=== PATIENT | female | born 1975 | race Caucasian/White ===

== ENCOUNTER 2020-11-20 07:13 | Outpatient (CLI) | payer OTHER, SELFPAY ==
[2020-11-20 10:33] LABS: HCT 42.4 % (36.0-46.0); HGB 13.8 g/dL (11.2-15.7); MCH 30.5 pg (27.0-33.0); MCHC 32.5 % (32.0-36.0); MCV 93.6 fL (80-95); MPV 9.5 fL (8.0-11.0); Platelet Count 278 10^3/uL (130-400); RBC 4.53 10^6/uL (3.93-5.22); RDW 12.1 % (11.7-14.6); RDW-SD 42.3 fL; WBC 6.83 10^3/uL (4.4-10.8)
[2020-11-20 11:02] LABS: ALT 18 U/L (14-59); AST 17 U/L (15-37); Albumin 3.5 g/dL (3.4-5.0); Alkaline Phosphatase 89 U/L (46-116); Anion Gap 7.8 mmol/L (3-11); BUN 12 mg/dL (7-18); Bilirubin, Total 0.6 mg/dL (0.2-1.0); CO2 27.2 mmol/L (21.0-32.0); CREATININE 0.8 mg/dL (0.55-1.02); Calcium 8.1 mg/dL (8.5-10.1); Calculated LDL 81 mg/dL (<100); Chloride 106 mmol/L (98-107); Cholesterol 137 mg/dL (<200); Glucose 79 mg/dL (74-106); HDL Cholesterol 47 mg/dL (40-60); Sodium 141 mmol/L (136-145); TSH (W/Ref FT4) 2.38 uIU/mL (0.36-3.74); Total Protein 7.2 g/dL (6.4-8.2); Triglyceride 48 mg/dL (<150)
== END 2020-11-20 07:14 | disposition home or self-care (01) ==
PROVIDERS: PCP Nurse Practitioner; Visit Provider Nurse Practitioner Family
DX: Z00.00 Encounter for general adult medical examination without abnormal findings (principal); R53.83 Other fatigue; Z13.220 Encounter for screening for lipoid disorders
CPT/HCPCS: 36415; 80053; 80061; 85027; 84443

== ENCOUNTER 2020-11-23 14:52 | Outpatient (REF) | payer OTHER, SELFPAY ==
[2020-11-25 11:02] LABS: COVID-19 RT-PCR UVMMC Result Negative (Negative)
== END 2020-11-24 08:21 | disposition home or self-care (01) ==
LOC: NCHCN 14:52
PROVIDERS: PCP Nurse Practitioner; Visit Provider Nurse Practitioner Family
DX: J02.9 Acute pharyngitis, unspecified (principal); Z20.822 Contact with and (suspected) exposure to COVID-19
CPT/HCPCS: U0003; 87070